=== PATIENT | female | born 1995 | race Caucasian/White ===

== ENCOUNTER 2024-05-05 09:45 | Outpatient (AMB) | payer OTHER, SELFPAY ==
[2024-05-05 09:51] VITALS: BP 116/68; PULSE 71; O2SAT 98; BMI 29.9
--- NOTE | 2024-05-05 09:51 | A.OFFVIS_ITS ---
Vital Signs 05/05/24 09:51 Height 5 ft 1 in Weight 158 lb 8.198 oz BMI 29.9 BP 116/68 Blood Pressure Location Lt brachial Position Sitting Pulse 71 Pulse Source Pulse Oximeter Pulse Oximetry (%) 98 Oxygen Delivery Method Room Air Intake Visit Reasons: Lupus/LM Intake Note: Patient presents for follow up on lupus today. She states she's almost out of hyroxychloquine. Allergies rituximab [From Rituxan] Allergy (Mild, Verified 05/05/24 09:53) hives, nausea, tachycardia HPI HPI Lupus/LM: Details: She recovered from RSV infection. Presenting with fatigue and URI symptoms. No sick contacts. Denies having fevers, new rashes, Raynaud's phenomena, oral ulcers, pleurisy, dyspnea, urinary symptoms. She continues to have malar rash. Last Benlysta 04/01/2024 [facility] Medical History (Updated 05/05/24 @ 10:41 by Joshua Sorenson MD) Anxiety Raynauds disease Antiphospholipid antibody positive Lupus (systemic lupus erythematosus) Surgical History (Updated 05/05/24 @ 10:00 by Ariane Linares CMA) S/P tonsillectomy Family History (Updated 05/05/24 @ 10:02 by Ariane Linares CMA) Mother Breast cancer Maternal Grandmother No problems noted. Maternal Aunt Breast cancer Father Hypertension Social History (Updated 05/05/24 @ 10:03 by Ariane Linares CMA) Alcohol intake: current Alcohol intake frequency: holidays/special occasions only Alcohol type: hard liquor Comment: once a week Patient Tobacco Use Status: Never used Tobacco Review of Systems Const All systems reviewed & are unremarkable except as noted in HPI and below Physical Exam Vital Signs: Last Vital Signs Pulse 71 05/05/24 09:51 BP 116/68 05/05/24 09:51 Pulse Ox 98 05/05/24 09:51 Oxygen Delivery Method Room Air 05/05/24 09:51 BMI result Body Mass Index 29.9 Const Other: General: Comfortable CVS: RRR Respiratory: clear to auscultation bilaterally. Good respiratory effort Skin: No lesions seen MSK: No synovitis. No tender joints. Good range of motion of upper extremities and lower extremities. Assessment & Plan Assessment & Plan (1) Lupus (systemic lupus erythematosus): Comment: In remission on hydroxychloroquine and Benlysta infusions. Code(s): M32.9 - Systemic lupus erythematosus, unspecified Category: Medical Plan: Labs for disease and drug monitoring on high-risk medication ordered Optimum weight based dose is 300 mg daily. I am requesting records from [facility] for med list verification. Will increase HCQ to 300mg after lab results are back. Continue Benlysta IV infusion monthly Return to clinic in 3 months (2) Other fdc (current) drug therapy: Code(s): Z79.899 - Other termite control technician (current) drug therapy Category: Medical Plan: See above Plan See above Orders: Orders C Reactive Protein Today M32.9 - Systemic lupus erythematosus, unspecified Erythrocyte Sedimentation Rate Today M32.9 - Systemic lupus erythematosus, unspecified, Z79.899 - Other fdc (current) drug therapy UA w Microscopic Today M32.9 - Systemic lupus erythematosus, unspecified, Z79.899 - Other termite control technician (current) drug therapy Protein Creatinine Ratio, Ur Today M32.9 - Systemic lupus erythematosus, unspecified Alanine Aminotransferase Today Z79.60 - longterm (current) use of unspecified immunomodulators and immunosuppressants T Spot TB Today Z79.899 - Other fdc (current) drug therapy Hepatitis B,C Profile Today M32.9 - Systemic lupus erythematosus, unspecified, Z79.899 - Other termite control technician (current) drug therapy Anti DNA DS Antibody Today M32.9 - Systemic lupus erythematosus, unspecified Complement C3 Today M32.9 - Systemic lupus erythematosus, unspecified Complement C4 Today M32.9 - Systemic lupus erythematosus, unspecified Aspartate Amino Transferase Today Z79.60 - longterm (current) use of unspecified immunomodulators and immunosuppressants Complete Blood Count Auto Diff Today Z79.60 - intermediate frame tender (current) use of uns pecified immunomodulators and immunosuppressants Creatinine Today Z79.60 - longterm (current) use of unspecified immunomodulators and immunosuppressants Coding Level of Care Code Est Pt Level 4 (24896) Complex EM visit Add On G2211 Diagnoses Lupus (systemic lupus erythematosus) M32.9 Other termite control technician (current) drug therapy Z79.899
== END 2024-05-05 10:32 | disposition home or self-care (01) ==
PROVIDERS: PCP Nurse Practitioner Family; Visit Provider Internal Medicine Rheumatology
DX: M32.9 Systemic lupus erythematosus, unspecified (principal); Z79.899 Other long term (current) drug therapy
CPT/HCPCS: 99214

== ENCOUNTER → 2024-05-05 09:45 | Outpatient (BNVA) | payer OTHER, SELFPAY | PROVIDERS: PCP Nurse Practitioner Family; Visit Provider Internal Medicine Rheumatology ==

== ENCOUNTER 2024-05-06 11:44 | Outpatient (REF) | payer OTHER, SELFPAY ==
[2024-05-06 13:14] LABS: MANUAL DIFF FLAG NO
[2024-05-06 13:24] LABS: Basophils Percent Auto 0.2 % (0-2); Eosinophils Percent Auto 0.2 % (0-4); Hematocrit 38.3 % (37.0-47.0); Hemoglobin 13.3 g/dl (12.0-16.0); Imm Gran Abs Auto 0.01 X10*3/uL (0.00-0.03); Imm Gran Pct Auto 0.2 % (0.0-0.4); Lymphocytes Absolute Auto 1.7 X10*3/uL (1.2-4.9); Lymphocytes Percent Auto 32.4 % (20-40); Mean Corpuscular HGB Conc 34.7 g/dl (31.0-35.0); Mean Corpuscular Hemoglobin 30.7 pg (27.0-33.0); Mean Corpuscular Volume 88.5 fL (80.0-98.0); Mean Platelet Volume 10.8 fL (9.4-12.3); Monocytes Absolute Auto 0.3 X10*3/uL (0.1-1.2); Monocytes Percent Auto 6.2 % (2-11); Neutrophils Absolute Auto 3.1 x10*3/uL (2.0-8.3); Neutrophils Percent Auto 60.8 % (45-73); Platelet Count 287 X10*3/uL (160-400); Red Blood Count 4.33 X10*6/uL (4.20-5.50); Red Cell Distribution Width 11.7 % (11.0-16.0); White Blood Count 5.2 X10*3/uL (4.8-10.8)
[2024-05-06 13:56] LABS: Alanine Aminotransferase 22 U/L (0-31); Aspartate Amino Transferase 18 U/L (5-31); C Reactive Protein < 0.10 mg/dL (< or = 0.50); Estimated Glomerular Filt Rate > 60
[2024-05-06 14:05] LABS: Erythrocyte Sedimentation Rate 18 MM/HR (0-20)
[2024-05-06 16:18] LABS: Appearance Urine Cloudy; Color Urine Yellow; Glucose Urine UA Negative (Negative); Leukocyte Esterase Urine Negative (Negative); Nitrite Urine Negative (Negative); PH 5.5 (5.0-9.0); Urine Blood Negative (Negative); Urine Ketones Negative (Negative); Urine Protein Negative (Neg-Trace)
[2024-05-06 16:23] LABS: Bacteria Urine 3+ (None Seen); Hyaline Casts Urine 0-2 /LPF (0-2); RBC Urine 0-2 /HPF (0-2); WBC Urine 0-5 /HPF (0-5)
[2024-05-06 17:01] LABS: Creatinine Urine 97.74 mg/dL; Total Protein Urine Random < 7 mg/dL (<12)
[2024-05-07 08:17] LABS: HBS Num1 1.97 mIU/mL (0-7.99); HBc Num1 0.21 S/CO (0.00-0.79); HBsAGNum1 0.63 S/CO (0.00-0.99); Hepatitis B Core Antibody Nonreactive (Nonreactive); Hepatitis B Surface Antigen Negative (Negative); ~HepC Num1 0.63 S/CO (0.00-0.79); ~Hepatitis B Surface Antibody NONREACTIVE (Nonreactive); ~Hepatitis C Antibody Nonreactive (Nonreactive)
[2024-05-07 16:08] LABS: Anti DNA DS Antibody 6 IU/mL
[2024-05-09 16:54] LABS: TS Negative Control Passed; TS Panel A 0; TS Panel B 0; TS Positive Control Passed; TSpotTB Negative (Negative)
[2024-05-11 11:08] LABS: Complement C3 107 mg/dL (83-193)
== END 2024-05-06 11:45 | disposition home or self-care (01) ==
LOC: HO.HMGCLDS 11:44
PROVIDERS: PCP Nurse Practitioner Family; Visit Provider Internal Medicine Rheumatology
DX: M32.9 Systemic lupus erythematosus, unspecified (principal); Z79.899 Other long term (current) drug therapy; Z79.60 Long term (current) use of unspecified immunomodulators and immunosuppressants
CPT/HCPCS: 36415; 81001; 82565; 82570; 84156; 84450; 84460; 85025; 85652; 86140; 86160; 86225; 86481; 86704; 86706; 86803; 87340

== ENCOUNTER 2024-08-04 09:37 | Outpatient (AMB) | payer OTHER, SELFPAY ==
--- NOTE | 2024-08-04 09:39 | A.OFFVIS_ITS ---
Vital Signs 08/04/24 09:41 Height 5 ft 1 in Weight 160 lb 0.889 oz BMI 30.2 BP 110/80 Pulse 80 Pulse Source Pulse Oximeter Pulse Oximetry (%) 99 Oxygen Delivery Method Room Air Intake Visit Reasons: 3 mnts f/u Intake Note: Patient presents for follow up on lupus today. Allergies rituximab [From Rituxan] Allergy (Mild, Verified 08/04/24 09:41) hives, nausea, tachycardia HPI HPI 3 mnts f/u: Details: She has increased anxiety because her dog is not doing well. Dog recently was found to have a tumor in his mouth. She denies new fevers, dyspnea, pleurisy, oral ulcers, rash, joint pain, joint swelling, Raynaud's syndrome flares, urinary symptoms. [facility] Medical History Anxiety Raynauds disease Antiphospholipid antibody positive Lupus (systemic lupus erythematosus) Surgical History S/P tonsillectomy Family History Mother Breast cancer Maternal Grandmother No problems noted. Maternal Aunt Breast cancer Father Hypertension Social History Alcohol intake: current Alcohol intake frequency: holidays/special occasions only Alcohol type: hard liquor Comment: once a week Patient Tobacco Use Status: Never used Tobacco Review of Systems Const All systems reviewed & are unremarkable except as noted in HPI and below Physical Exam Vital Signs: Last Vital Signs Pulse 80 08/04/24 09:41 BP 110/80 08/04/24 09:41 Pulse Ox 99 08/04/24 09:41 Oxygen Delivery Method Room Air 08/04/24 09:41 BMI result Body Mass Index 30.2 Const Other: General: Comfortable CVS: RRR Respiratory: clear to auscultation bilaterally. Good respiratory effort Skin: No lesions seen, digital ulcers or discoloration MSK: No synovitis. No tender joints. Normal range of motion of upper extremities and lower extremities. Assessment & Plan Assessment & Plan (1) Lupus (systemic lupus erythematosus): Comment: In clinical remission on hydroxychloroquine and Benlysta infusions. Recent labs reviewed with patient, which reveal indeterminate double-stranded DNA and low C4 - stable. Rheumatology history: She was diagnosed with systemic lupus erythematosus manifesting with autoimmune hemolytic anemia, malar rash, hair loss, migraines, Raynaud's syndrome, inflammatory arthritis, hypocomplementemia, low C3, undetectable level of C4 initially, positive double-stranded DNA. She was treated with prednisone 60 mg daily March 2018 tapered off 07/[address] Garsia [facility] [place]. HCQ Baseline exam 07/2018. Rituximab 375mg/m2 4 doses 11/2019-06/2020 d/c infusion reaction after 3rd and 4th weekly dose. Azathioprine started due to serological activity of lupus but discontinued due to worsening leukopenia and new transaminitis. Code(s): M32.9 - Systemic lupus erythematosus, unspecified Category: Medical Qualifiers: Systemic lupus erythematosus organ involvement: unspecified Systemic lupus erythematosus type: unspecified Qualified Code(s): M32.9 - Systemic lupus erythematosus, unspecified Plan: Labs for disease and drug monitoring on high-risk medication ordered Continue HCQ 300mg daily. Recent eye exam reviewed but it does not mentioned if it is okay for patient to continue hydroxychloroquine and recent OCT and visual field test has not been reported. Requesting clarification/letter from provide. Need OCT and VF yearly. Continue Benlysta IV infusion every 4 weeks Return to clinic in 3 months (2) Other care home (current) drug therapy: Code(s): Z79.899 - Other termite control representative (current) drug therapy Category: Medical Plan See above Orders: Orders Complete Blood Count Auto Diff Today Z79.60 - termite control representative (current) use of unspecified immunomodulators and immunosuppressants Alanine Aminotransferase Today Z79.60 - jail (current) use of unspecified immunomodulators and immunosuppressants Aspartate Amino Transferase Today Z79.60 - termite control representative (current) use of unspecified immunomodulators and immunosuppressants Erythrocyte Sedimentation Rate Today Z79.899 - Other termite control representative (current) drug therapy C Reactive Protein Today Z79.899 - Other termite control representative (current) drug therapy Anti DNA DS Antibody Today M32.9 - Systemic lupus erythematosus, unspecified Complement C4 Today M32.9 - Systemic lupus erythematosus, unspecified JOSEPH Reflex Titer and Pattern Today M32.9 - Systemic lupus erythematosus, unspecified Creatinine Today Z79.60 - jail (current) use of unspecified immunomodulators and immunosuppressants Complement C3 Today M32.9 - Systemic lupus erythematosus, unspecified, Z79.899 - Other termite control representative (current) drug therapy UA w Microscopic Today Z79.899 - Other termite control representative (current) drug therapy Protein Creatinine Ratio, Ur Today M32.9 - Systemic lupus erythematosus, unspecified, Z79.899 - Other termite control representative (current) drug therapy Coding Level of Care Code Est Pt Level 4 (89123) Complex EM visit Add On G2211 Diagnoses Systemic lupus erythematosus, unspecified SLE type, unspecified organ involvement status M32.9 Systemic lupus erythematosus organ involvement: unspecified Systemic lupus erythematosus type: unspecified Other care home (current) drug therapy Z79.899
[2024-08-04 09:41] VITALS: BP 110/80; PULSE 80; O2SAT 99; BMI 30.2
--- OUTSIDE RECORDS SUMMARY | 2024-08-04 10:52 | XMS_ITS | Encounter Summary ---
Author Organization [facility] Address [address] [place] [address] Phone Care Team Providers Care Senior Center Director Name Role Phone Darcie Story MD Primary Care Provider Unavailabl e Encounter Details Date Type Department Care Team (Late st Contact Info) Description 03/02/2013 [place] [facility] [place] [address] [place] [address] Family Medicine, Physician [address] [place] [address] Social History Tobacco Use Types Packs/Day Years Used Date Smoking Tobacco: Never Assessed Comments Unknown Sex and Gender Information Value Date Recorded Sex Assigned at Not on file Legal Sex Female 5:04 PM EDT Gender Identity Not on file Sexual Orientation Not on file documented as of this encounter Plan of Treatment Not on file documented as of this encounter Visit Diagnoses Not on filedocumented in this encounter Care Teams Senior Center Director Relationship Specialty Start Date End Date Darcie Story MD PCP - General 01/04/17 documented as of this encounter
--- OUTSIDE RECORDS SUMMARY | 2024-08-04 10:52 | XMS_ITS | Encounter Summary ---
Author Organization [facility] Address [address] [place] [address] Phone Care Team Providers Care Utility Systems Repairer Operator Name Role Phone Darcie Story MD Primary Care Provider Unavailabl e Encounter Details Date Type Department Care Team (Late st Contact Info) Description 08/14/2013 Documentation [facility] [place] [address] [place] [address] Family Medicine, Physician [address] [place] [address] Social History Tobacco Use Types Packs/Day Years [...] on filedocumented in this encounter Care Teams Utility Systems Repairer Operator Relationship Specialty Start Date End Date Darcie Story MD PCP - General 01/04/17 documented as of this encounter
--- OUTSIDE RECORDS SUMMARY | 2024-08-04 10:52 | XMS_ITS | Clinical Summary ---
Author Organization [facility] Address [address] [place] [phone] Phone Care Team Providers Care Cable Engineer Outside Plant Name Role Phone Darcie Story MD Primary Care Provider Unavailabl e Immunizations Immunization Administration Dates Next Due DTP 01/07/1998, 7,1996,09/10 DTaP 5 08/05/2000 HPV, Quadrivalent 05/03/2011,04/19/2010,02/09/20 10 Hep A, ped/adol 01/03/2015,05/31/2014 Hep B, ped/adol 01/11/1997,1996,1996 Hib (PRP-T) 10/15/1997, 7,1996,09/10 IPV 08/05/2000 Influenza Split 05/03/2011 Influenza, injectable, quadrivalent 05/31/2014 Influenza, injectable, quadr ivalent, preservative free 08/10/2013 Influenza, intranasal, trivalent 08/07/2012,01/25 MMR 08/05/2000,07/16/1997 Meningococcal Conj (Menactra) MCV4P 05/31/2014,0 01/05/2009 OPV 01/11/1997,1996,1996 Tdap 01/05/2009 Varicella 01/05/2009,07/16/1997 Family History Relation Name Status Comments Brother Alive Brother: Alive and well Father Alive Father: Alive a nd well Maternal Grandmother Alive Materna l aunt: Cancer, breast Mother Alive Mother: elevate d JOSEPH Other 1 Self: Factor 2 Other 2 Family history of *Sudden /NM under 55, No family history of Asthma, No family history of Obesity, Family history of Hyperlipidemia, No family history of Developmental dislocation of hip, No family history of Diabetes mellitus, No family history of Deafness, No family history of Strabismus, Family history of ADD/ADHD, Family history of *Thrombophilia, No family history of Migraines, Family history of Elevated cholesterol, No family history of *Heart Disease, No family history of Seizure disorder, Family history of Cancer, No family history of *CVA/Stroke Social History Tobacco Use Types Packs/Day Years Used Date Smoking Tobacco: Never Comments:Never smoker Comments Unknown Sex and Gender Information Value Date Recorded Sex Assigned at Not on file Legal Sex Female 5:04 PM EDT Gender Identity Not on file Sexual Orientation Not on file Last Filed Vital Signs Vital Sign Reading Time Taken Comments Blood Pressure 108/76 10/27/2015 12:00 AM EDT Pulse 72 07/26/2015 12:00 AM EST Temperature 36.7 ??C (98 ??F) 10/27/2015 12:00 AM EDT Respiratory Rate - - Oxygen Saturation - - Inhaled Oxygen Concentration - - Weight 54.4 kg (120 lb) 10/27/2015 12:00 AM EDT Height 154.3 cm (5' 0.75 ) 10/27/2015 12:00 AM E DT Body Mass Index 22.86 10/27/2015 12:00 AM EDT Plan of Treatment Health Maintenance Due Date Last Done Comments DTaP,Tdap,and Td Vaccines (7 - Td or Tdap) 01/05/2019 01/05/2009, 08/05/2000, 01/07/1998, Additional history exists Influenza Vaccines (#1) 2023 05/31/19, 08/10/2013, 08/07/2012, Additional history exists COVID-19 Vaccine ( season) 2024 Hepatitis B Vaccines Completed 01/11/1997, 1996, 1996 HIB Vaccines Completed 10/15/1997, 12/25, 1996, Additional history exists IPV Vaccines Completed 08/05/2000, 12/25, 1996, Additional history exists MMR Vaccines Completed 08/05/2000, 07/16/1997 Varicella Vaccines Completed 01/05/2009, 07/16/1997 HPV Vaccines Completed 05/03/2011, 03/28, 02/08/2010 Meningococcal Vaccine Completed 05/31/2014, 009 Hepatitis A Vaccines Completed 01/03/2015, 05/31/19 15 Men B Vaccine Aged Out No longer elig ible based on patient's age to complete this topic Pneumococcal Vaccine Aged Out No long er eligible based on patient's age to complete this topic Procedures * Due to [facility] law, this organization might not be sharing sensitive test results. Procedure Name Priority Date/Time Associated Diagnosis Comments CHLAMYDIA AND GONORRHEA, AMPLIFIED Routine 08/11/2014 2:58 PM EDT from Last 3 Months or Most Recently Relevant to Health Maintenance Results * Due to [place] [employer] law, this organization might not be sharing sensitive test results. * Chlamydia and Gonorrhoea, Amplified (08/11/2014 2:58 PM EDT) Pathologist [facility] URINE CHLAMYDIA AMP PROBE NEGATIVE [facility] Comment: No Chlamydia Trachomatis RNA detected in this patient's sample (REFERENCE RANGE/NORMAL VALUE: NOT DETECTED) URINE GC AMP PROBE NEGATIVE [facility] Comment: No Neisseria Gonorrhoeae RNA detected in this patient's sample (REFERENCE RANGE/NORMAL VALUE: NOT DETECTED) NOTE: This test uses identification printing machine setter-mediated amplification method to detect rRNA from C.Trachomatis and N.Gonorrhoeae. A negative result does not preclude infection. In the case of a negative urine result, testing of an endocervical(female) or urethral(male) specimen is recommended if there is high clinical suspicion of infection. The performance characteristics of this test have not been evaluated in children. The Aptima Combo2 assay is not intended for the evaluation of suspected sexual abuse or for other medico-legal indications. The ordering provider should assess if the patient had consensual sex without risk of sexual abuse. Consult the [facility] if needed. Contact phone number . Therapeutic failure or success cannot be determined with the Aptima Combo2 assay since nucleic acid may persist following appropriate antimicrobial therapy. The Centers for Disease Control and Prevention (CDC) recommends confirmatory retesting using culture or a different nucleic acid amplification test when positive results occur, if indicated. Testing performed or reported by [facility], a Service of [facility], [address] [place], [place] [id number] Tremaine Bowling MD, PhD, Lead Instructor/Flight Attendant 08/11/2014 2:58 PM EDT Narrative [facility] - 08/11/2014 2:58 PM EDT URINE CHLAMYDIA GC AMP PROBE us Bharti Alvarado MD LAB MICROBIOLOGY - GENERAL ORDER DAE Final Result [facility] [address] [id number], [place] from Last 3 Months or Most Recently Relevant to Health Maintenance Care Teams Cable Engineer Outside Plant Relationship Specialty Start Date End Date Darcie Story MD PCP - General 01/04/17
--- OUTSIDE RECORDS SUMMARY | 2024-08-04 10:52 | XMS_ITS | Encounter Summary ---
Author Organization [facility] Address [address] [place] [phone] Phone Care Team Providers Care Janitor Name Role Phone Darcie Story MD Primary Care Provider Unavailabl e Encounter Details Date Type Department Care Team (Late st Contact Info) Description 01/10/2017 Conversion Encounter [facility] - [address] [address] Social History Tobacco Use Types Packs/Day Years [...] on filedocumented in this encounter Care Teams Janitor Relationship Specialty Start Date End Date Darcie Story MD PCP - General 01/04/17 documented as of this encounter
--- OUTSIDE RECORDS SUMMARY | 2024-08-04 10:52 | XMS_ITS | Encounter Summary ---
Author Organization [facility] Address [address] [place] [phone] Phone Care Team Providers Care Child Psychiatrist Name Role Phone Darcie Story MD Primary Care Provider Unavailabl e Encounter Details Date Type Department Care Team (Late st Contact Info) Description 03/02/2013 Documentation [facility] [place] Family Medicine [address] [place] [address] Family Medicine, Physician [address] [place] [address] Social History Tobacco Use Types Packs/Day Years [...] on filedocumented in this encounter Care Teams Child Psychiatrist Relationship Specialty Start Date End Date Darcie Story MD PCP - General 01/04/17 documented as of this encounter
--- OUTSIDE RECORDS SUMMARY | 2024-08-04 10:52 | XMS_ITS | Encounter Summary ---
Author Organization [facility] Address [address] [place] [phone] Phone Care Team Providers Care Occupational Therapy Department Chair Name Role Phone Darcie Story MD Primary Care Provider Unavailabl e Encounter Details Date Type Department Care Team (Late st Contact Info) Description 10/21/2013 Documentation [facility] [place] [address] [place] [address] Family Medicine, Physician [address] [place] [address] Social History Tobacco Use Types Packs/Day Years [...] on filedocumented in this encounter Care Teams Occupational Therapy Department Chair Relationship Specialty Start Date End Date Darcie Story MD PCP - General 01/04/17 documented as of this encounter
--- OUTSIDE RECORDS SUMMARY | 2024-08-04 10:52 | XMS_ITS | Encounter Summary ---
Author Organization [facility] Address [address] [place] [address] Phone Care Team Providers Care Brick And Blocker Aid Labor Name Role Phone Darcie Story MD Primary Care Provider Unavailabl e Encounter Details Date Type Department Care Team (Late st Contact Info) Description 12/22/2014 Documentation [facility] [place] Medicine [address] [place] [address] Family Medicine, Physician [address] [place] [address] Social History Tobacco Use Types Packs/Day Years [...] on filedocumented in this encounter Care Teams Brick And Blocker Aid Labor Relationship Specialty Start Date End Date Darcie Story MD PCP - General 01/04/17 documented as of this encounter
== END 2024-08-04 10:18 | disposition home or self-care (01) ==
LOC: HO.RHES 09:37
PROVIDERS: PCP Nurse Practitioner Family; Visit Provider Internal Medicine Rheumatology
DX: M32.9 Systemic lupus erythematosus, unspecified (principal); Z79.899 Other long term (current) drug therapy
CPT/HCPCS: 99214

== ENCOUNTER 2024-08-21 08:22 | Outpatient (REF) | payer OTHER, SELFPAY ==
[2024-08-21 10:20] LABS: MANUAL DIFF FLAG NO
[2024-08-21 10:24] LABS: Appearance Urine Cloudy; Color Urine Yellow; Glucose Urine UA Negative (Negative); Leukocyte Esterase Urine Negative (Negative); Nitrite Urine Negative (Negative); Urine Blood Negative (Negative); Urine Ketones Negative (Negative); Urine Protein Negative (Neg-Trace)
[2024-08-21 10:25] LABS: Basophils Percent Auto 0.2 % (0-2); Eosinophils Percent Auto 0.2 % (0-4); Hematocrit 36.4 % (37.0-47.0); Hemoglobin 12.9 g/dl (12.0-16.0); Imm Gran Abs Auto 0.01 X10*3/uL (0.00-0.03); Imm Gran Pct Auto 0.2 % (0.0-0.4); Lymphocytes Absolute Auto 1.6 X10*3/uL (1.2-4.9); Lymphocytes Percent Auto 29.4 % (20-40); Mean Corpuscular HGB Conc 35.4 g/dl (31.0-35.0); Mean Corpuscular Hemoglobin 30.4 pg (27.0-33.0); Mean Corpuscular Volume 85.8 fL (80.0-98.0); Mean Platelet Volume 10.7 fL (9.4-12.3); Monocytes Absolute Auto 0.3 X10*3/uL (0.1-1.2); Neutrophils Absolute Auto 3.4 x10*3/uL (2.0-8.3); Platelet Count 229 X10*3/uL (160-400); Red Blood Count 4.24 X10*6/uL (4.20-5.50); Red Cell Distribution Width 11.9 % (11.0-16.0); White Blood Count 5.3 X10*3/uL (4.8-10.8)
[2024-08-21 10:31] LABS: Bacteria Urine 2+ (None Seen); Hyaline Casts Urine 0-2 /LPF (0-2); RBC Urine 0-2 /HPF (0-2); WBC Urine 0-5 /HPF (0-5)
[2024-08-21 11:07] LABS: Creatinine Urine 97.67 mg/dL; Total Protein Urine Random < 7 mg/dL (<12)
[2024-08-21 11:16] LABS: Erythrocyte Sedimentation Rate 12 MM/HR (0-20)
[2024-08-21 11:27] LABS: Alanine Aminotransferase 22 U/L (0-31); Aspartate Amino Transferase 17 U/L (5-31); C Reactive Protein < 0.10 mg/dL (< or = 0.50); Estimated Glomerular Filt Rate > 60
[2024-08-24 12:27] LABS: Complement C3 102 mg/dL (83-193)
[2024-08-24 19:49] LABS: Anti DNA DS Antibody 5 IU/mL
[2024-08-25 09:42] LABS: Anti Nuclear Antibody Screen NEGATIVE (NEGATIVE)
== END 2024-08-21 08:23 | disposition home or self-care (01) ==
LOC: HO.HMGCLDS 08:22
PROVIDERS: PCP Nurse Practitioner Family; Visit Provider Internal Medicine Rheumatology
DX: M32.9 Systemic lupus erythematosus, unspecified (principal); Z79.60 Long term (current) use of unspecified immunomodulators and immunosuppressants; Z79.899 Other long term (current) drug therapy
CPT/HCPCS: 36415; 81001; 82565; 82570; 84156; 84450; 84460; 85025; 85652; 86038; 86140; 86160; 86225

== ENCOUNTER 2024-11-04 08:44 | Outpatient (AMB) | payer OTHER, SELFPAY ==
--- NOTE | 2024-11-04 08:45 | A.OFFVIS_ITS ---
Vital Signs 11/04/24 08:47 Height 5 ft 1 in Weight 160 lb 4 oz BMI 30.3 BP 112/68 Blood Pressure Location Lt brachial Position Sitting Pulse 70 Pulse Source Pulse Oximeter Pulse Oximetry (%) 98 Oxygen Delivery Method Room Air Intake Visit Reasons: 3 Months Intake Note: Patient presents for follow up osteoarthritis. Allergies rituximab [From Rituxan] Allergy (Mild, Verified 11/04/24 08:49) hives, nausea, tachycardia HPI HPI 3 Months: Details: She feels well. Denies joint pain, fevers, dyspnea, pleurisy, new rashes, Raynaud's phenomenon, urinary symptoms. She saw wellfield technician who informed her that there was lab abnormality on her labs involving her blood counts. She did not receive any new treatments. [facility] Medical History Anxiety Raynauds disease Antiphospholipid antibody positive Lupus (systemic lupus erythematosus) Surgical History S/P tonsillectomy Family History Mother Breast cancer Maternal Grandmother No problems noted. Maternal Aunt Breast cancer Father Hypertension Social History Alcohol intake: current Alcohol intake frequency: holidays/special occasions only Alcohol type: hard liquor Comment: once a week Patient Tobacco Use Status: Never used Tobacco Physical Exam Vital Signs: Last Vital Signs Pulse 70 11/04/24 08:47 BP 112/68 11/04/24 08:47 Pulse Ox 98 11/04/24 08:47 Oxygen Delivery Method Room Air 11/04/24 08:47 BMI result Body Mass Index 30.3 Const Other: General: Comfortable CVS: RRR Respiratory: clear to auscultation bilaterally. Good respiratory effort Skin: No lesions seen, digital ulcers or discoloration MSK: No synovitis. No tender joints. Normal range of motion of upper extremities and lower extremities. Assessment & Plan Assessment & Plan (1) Lupus (systemic lupus erythematosus): Comment: In clinical remission on hydroxychloroquine and Benlysta infusions. Recent labs 07/2024 reviewed with patient, which reveal indeterminate double-stranded DNA and low C4 - stable. She also had normal hemoglobin with low hematocrit. Rheumatology history: She was diagnosed with systemic lupus erythematosus manifesting with autoimmune hemolytic anemia, malar rash, hair loss, migraines, Raynaud's syndrome, inflammatory arthritis, hypocomplementemia, low C3, undetectable level of C4 initially, positive double-stranded DNA. She was treated with prednisone 60 mg daily March 2018 tapered off 07/[address] Garsia [facility] [place]. HCQ Baseline exam 07/2018. Rituximab 375mg/m2 4 doses 11/2019-06/2020 d/c infusion reaction after 3rd and 4th weekly dose. Azathioprine started due to serological activity of lupus but discontinued due to worsening leukopenia and new transaminitis. Code(s): M32.9 - Systemic lupus erythematosus, unspecified Category: Medical Qualifiers: Systemic lupus erythematosus organ involvement: unspecified Systemic lupus erythematosus type: unspecified Qualified Code(s): M32.9 - Systemic lupus erythematosus, unspecified Plan: Labs for disease and drug monitoring on high-risk medication ordered Continue HCQ 300mg daily. VF 12/2023. Continue Benlysta IV infusion every 4 weeks Requesting recent hematology clinic note and labs performed at [facility] ordered by wellfield technician Return to clinic in 3 months (2) Other prison (current) drug therapy: Code(s): Z79.899 - Other prison (current) drug therapy Category: Medical Plan See above Orders: Orders Complete Blood Count Man Dif Today M32.9 - Systemic lupus erythematosus, unspecified Alanine Aminotransferase Today M32.9 - Systemic lupus erythematosus, unspec ified C Reactive Protein Today M32.9 - Systemic lupus erythematosus, unspecified UA w Microscopic Today M32.9 - Systemic lupus erythematosus, unspecified Protein Creatinine Ratio, Ur Today M32.9 - Systemic lupus erythematosus, unspecified Complement C3 Today M32.9 - Systemic lupus erythematosus, unspecified Anti DNA DS Antibody Today M32.9 - Systemic lupus erythematosus, unspecified Aspartate Amino Transferase Today M32.9 - Systemic lupus erythematosus, unspecified Creatinine Today M32.9 - Systemic lupus erythematosus, unspecified Erythrocyte Sedimentation Rate Today M32.9 - Systemic lupus erythematosus, unspecified Complement C4 Today M32.9 - Systemic lupus erythematosus, unspecified Coding Level of Care Code Est Pt Level 4 (94302) Complex EM visit Add On G2211 Diagnoses Systemic lupus erythematosus, unspecified SLE type, unspecified organ involvement status M32.9 Systemic lupus erythematosus organ involvement: unspecified Systemic lupus erythematosus type: unspecified Other watermelon harvesting supervisor (current) drug therapy Z79.899
[2024-11-04 08:47] VITALS: BP 112/68; PULSE 70; O2SAT 98; BMI 30.3
--- OUTSIDE RECORDS SUMMARY | 2024-11-04 09:03 | XMS_ITS | Encounter Summary ---
Author Organization [facility] Address [address] [place] [phone] Phone Care Team Providers Care School Psychological Examiner Name Role Phone Darcie Story MD Primary Care Provider Unavailabl e Encounter Details Date Type Department Care Team (Late st Contact Info) Description 03/02/2013 Documentation [facility] [place] Family Medicine [address] [place] [address] Family Medicine, Physician [address] [place] [address] Social History Tobacco Use Types Packs/Day Years [...] on filedocumented in this encounter Care Teams School Psychological Examiner Relationship Specialty Start Date End Date Darcie Story MD PCP - General 01/04/17 documented as of this encounter
== END 2024-11-04 09:23 | disposition home or self-care (01) ==
LOC: HO.RHES 08:45
PROVIDERS: PCP Nurse Practitioner Family; Visit Provider Internal Medicine Rheumatology
DX: M32.9 Systemic lupus erythematosus, unspecified (principal); Z79.899 Other long term (current) drug therapy
CPT/HCPCS: 99214; G2211

== ENCOUNTER 2024-11-04 08:44 | Outpatient (REF) | payer OTHER, SELFPAY ==
[2024-11-04 18:29] LABS: Baso%MD 0.2 %; Eos%MD 0.2 %; Hematocrit 38.6 % (37.0-47.0); Hemoglobin 13.7 g/dl (12.0-16.0); IG%MD 0.2 %; Lymph%MD 32.5 %; Mean Corpuscular HGB Conc 35.5 g/dl (31.0-35.0); Mean Corpuscular Hemoglobin 30.9 pg (27.0-33.0); Mean Corpuscular Volume 86.9 fL (80.0-98.0); Mono%MD 7.5 %; Neut%MD 59.4 %; Platelet Count 244 X10*3/uL (160-400); Red Blood Count 4.44 X10*6/uL (4.20-5.50); Red Cell Distribution Width 11.8 % (11.0-16.0); White Blood Count 4.4 X10*3/uL (4.8-10.8)
[2024-11-04 18:30] LABS: Creatinine Urine 118.03 mg/dL; Total Protein Urine Random < 7 mg/dL (<12)
[2024-11-04 18:34] LABS: Appearance Urine Clear; Color Urine Yellow; Glucose Urine UA Negative (Negative); Leukocyte Esterase Urine Negative (Negative); Nitrite Urine Negative (Negative); Urine Blood Negative (Negative); Urine Ketones Negative (Negative); Urine Protein Negative (Neg-Trace)
[2024-11-04 18:37] LABS: Alanine Aminotransferase 20 U/L (0-31); Aspartate Amino Transferase 19 U/L (5-31); Estimated Glomerular Filt Rate > 60
[2024-11-04 18:39] LABS: Bacteria Urine 1+ (None Seen); Hyaline Casts Urine 0-2 /LPF (0-2); RBC Urine 0-2 /HPF (0-2); WBC Urine 0-5 /HPF (0-5)
[2024-11-04 19:19] LABS: Erythrocyte Sedimentation Rate 10 MM/HR (0-20)
[2024-11-04 20:39] LABS: Eosinophils Percent Manual 1 % (0-4); Lymphocytes Percent Manual 23 % (20-40); Monocytes Absolute Manual 0.4 X10*3/uL (0.1-1.2); Monocytes Percent Manual 8 % (2-11); Neutrophils Percent Manual 68 % (45-73)
[2024-11-04 20:40] LABS: Platelet Estimate NORMAL (NORMAL); Platelet Morphology Comment NORMAL; RBC Morphology NORMAL
[2024-11-04 20:41] LABS: Band Neutrophils Percent 0 % (3-5)
[2024-11-07 06:33] LABS: Anti DNA DS Antibody 5 IU/mL
== END 2024-11-04 08:45 | disposition home or self-care (01) ==
LOC: HO.HKASLDS 08:44
PROVIDERS: PCP Nurse Practitioner Family; Visit Provider Internal Medicine Rheumatology
DX: M32.9 Systemic lupus erythematosus, unspecified (principal)
CPT/HCPCS: 36415; 81001; 82565; 82570; 84156; 84450; 84460; 85007; 85027; 85652; 86140; 86160; 86225

== ENCOUNTER 2025-02-09 08:28 | Outpatient (AMB) | payer OTHER, SELFPAY ==
--- NOTE | 2025-02-09 08:29 | A.OFFVIS_ITS ---
Vital Signs 02/09/25 08:30 Height 5 ft 1 in Weight 164 lb 7.437 oz BMI 31.1 BP 130/90 H Blood Pressure Location Lt brachial Position Sitting Pulse 78 Pulse Source Pulse Oximeter Pulse Oximetry (%) 97 Oxygen Delivery Method Room Air Intake Visit Reasons: 3 months Intake Note: Patient presents for follow up osteoarthritis. Accompanied by: Self / Same As Patient Allergies rituximab (From Rituxan) Allergy (Mild, Verified 02/09/25 08:29) hives, nausea, tachycardia HPI HPI 3 months: Details: Has a URI with headache, congestion and cough. Onset last . Improving. Injuly she was sick with a URI with brothers being exposures. Last Nov she was sick with RSV for 2 months +malar rash. No other signs or symptoms of SLE. [facility] Medical History Anxiety Raynauds disease Antiphospholipid antibody positive Lupus (systemic lupus erythematosus) Surgical History S/P tonsillectomy Family History Mother Breast cancer Maternal Grandmother No problems noted. Maternal Aunt Breast cancer Father Hypertension Social History Alcohol intake: current Alcohol intake frequency: holidays/special occasions only Alcohol type: hard liquor Comment: once a week Patient Tobacco Use Status: Never used Tobacco Physical Exam Vital Signs: Last Vital Signs Pulse 78 02/09/25 08:30 BP 130/90 H 02/09/25 08:30 Pulse Ox 97 02/09/25 08:30 Oxygen Delivery Method Room Air 02/09/25 08:30 BMI result Body Mass Index 31.1 Const Other: General: Comfortable CVS: RRR Respiratory: clear to auscultation bilaterally. Good respiratory effort Skin: No lesions seen, digital ulcers or discoloration MSK: No synovitis. No tender joints. Normal range of motion of upper extremities and lower extremities. Assessment & Plan Assessment & Plan (1) Lupus (systemic lupus erythematosus): Comment: In clinical remission on hydroxychloroquine and Benlysta infusions. Recent labs 10/2024 reviewed with patient, which reveal new leukopenia, indeterminate double- stranded DNA and low C4 - stable. She has a URI. If she continues to have recurrent URIs, I will consider reducing hydroxychloroquine dose to 200 mg daily. Rheumatology history: She was diagnosed with systemic lupus erythematosus manifesting with autoimmune hemolytic anemia, malar rash, hair loss, migraines, Raynaud's syndrome, inflammatory arthritis, hypocomplementemia, low C3, undetectable level of C4 initially, positive double-stranded DNA. She was treated with prednisone 60 mg daily March 2018 tapered off 07/[address] G[place] [facility] [place] HCQ Baseline exam 07/2018. Rituximab 375mg/m2 4 doses 11/2019-06/2020 d/c infusion reaction after 3rd and 4th weekly dose. Azathioprine started due to serological activity of lupus but discontinued due to worsening leukopenia and new transaminitis. Code(s): M32.9 - Systemic lupus erythematosus, unspecified Category: Medical Qualifiers: Systemic lupus erythematosus type: unspecified Systemic lupus erythematosus organ involvement: unspecified Qualified Code(s): M32.9 - Systemic lupus erythematosus, unspecified Plan: Labs for disease and drug monitoring on high-risk medication ordered. She will have labs done after she feels well. Continue HCQ 300mg daily. VF 12/2023. Eye exam scheduled for February. Continue Benlysta IV infusion every 4 weeks Return to clinic in 3 months (2) Other [facility]ci (current) drug therapy: Code(s): Z79.899 - Other petroleum terminal plant operator (current) drug therapy Category: Medical Plan See above Orders: Orders Protein Creatinine Ratio, Ur Today M32.9 - Systemic lupus erythematosus, unspecified Alanine Aminotransferase Today M32.9 - Systemic lupus erythematosus, unspecified Aspartate Amino Transferase Today M32.9 - Systemic lupus erythematosus, unspecified Creatinine Today M32.9 - Systemic lupus erythematosus, unspecified Anti DNA DS Antibody Today M32.9 - Systemic lupus erythematosus, unspecified C Reactive Protein Today M32.9 - Systemic lupus erythematosus, unspecified Complete Blood Count Auto Diff Today M32.9 - Systemic lupus erythematosus, unspecified Erythrocyte Sedimentation Rate Today M32.9 - Systemic lupus erythematosus, unspecified Complement C3 Today M32.9 - Systemic lupus erythematosus, unspecified Complement C4 Today M32.9 - Systemic lupus erythematosus, unspecified UA ClnCatch+Micro w/rflx Cult Today M32.9 - Systemic lupus erythematosus, unspecified Coding Level of Care Code Est Pt Level 4 (92571) Complex EM visit Add On G2211 Diagnoses Systemic lupus erythematosus, unspecified SLE type, unspecified organ involvement status M32.9 Systemic lupus erythematosus type: unspecified Systemic lupus erythematosus organ involvement: unspecified Other petroleum terminal plant operator (current) drug therapy Z79.899
[2025-02-09 08:30] VITALS: BP 130/90; PULSE 78; O2SAT 97; BMI 31.1
--- OUTSIDE RECORDS SUMMARY | 2025-02-09 10:02 | XMS_ITS | Encounter Summary ---
Author Organization [facility] Address [address] [place] [address] Phone Care Team Providers Care Med Spec Name Role Phone Darcie Story MD Primary Care Provider Unavailabl e Encounter Details Date Type Department Care Team (Late st Contact Info) Description 03/02/2013 Documentation [facility] [place] Family Medicine [address] [place] [address] Family Medicine, Physician [address] [place] [address] Social History Tobacco Use Types Packs/Day Years [...] on filedocumented in this encounter Care Teams Med Spec Relationship Specialty Start Date End Date Darcie Story MD PCP - General 01/04/17 documented as of this encounter
--- OUTSIDE RECORDS SUMMARY | 2025-02-09 10:02 | XMS_ITS | Encounter Summary ---
Author Organization [facility] Address [address] [place] [address] Phone Care Team Providers Care Coal Trimmer Name Role Phone Darcie Story MD Primary Care Provider Unavailabl e Encounter Details Date Type Department Care Team (Late st Contact Info) Description 01/10/2017 Conversion Encounter [facility] - [address] [address] Social History Tobacco Use Types Packs/Day Years [...] on filedocumented in this encounter Care Teams Coal Trimmer Relationship Specialty Start Date End Date Darcie Story MD PCP - General 01/04/17 documented as of this encounter
--- OUTSIDE RECORDS SUMMARY | 2025-02-09 10:02 | XMS_ITS | Encounter Summary ---
Author Organization [facility] Address [address] [place] [address] Phone Care Team Providers Care Sales Team Leader Name Role Phone Darcie Story MD Primary Care Provider Unavailabl e Encounter Details Date Type Department Care Team (Late st Contact Info) Description 03/02/2013 Documentation [facility] [place] Family Medicine [address] [place] [address] Family Medicine, Physician [address] [place] [address] Social History Tobacco Use Types Packs/Day Years [...] on filedocumented in this encounter Care Teams Sales Team Leader Relationship Specialty Start Date End Date Darcie Story MD PCP - General 01/04/17 documented as of this encounter
--- OUTSIDE RECORDS SUMMARY | 2025-02-09 10:02 | XMS_ITS | Encounter Summary ---
Author Organization [facility] Address [address] [place] [address] Phone Care Team Providers Care Interdisciplinary Professor Name Role Phone Darcie Story MD Primary Care Provider Unavailabl e Encounter Details Date Type Department Care Team (Late st Contact Info) Description 12/22/2014 Documentation [facility] [place] [address] [place] [address] Family Medicine, Physician [address] [place] [address] Social History Tobacco Use Types Packs/Day Years [...] on filedocumented in this encounter Care Teams Interdisciplinary Professor Relationship Specialty Start Date End Date Darcie Story MD PCP - General 01/04/17 documented as of this encounter
--- OUTSIDE RECORDS SUMMARY | 2025-02-09 10:03 | XMS_ITS | Encounter Summary ---
Author Organization [facility] Address [address] [place] [address] Phone Care Team Providers Care Escalator Attendant Name Role Phone Darcie Story MD Primary Care Provider Unavailabl e Encounter Details Date Type Department Care Team (Late st Contact Info) Description 10/21/2013 Documentation [facility] [place] Family Medicine [address] [place] [address] Family Medicine, Physician [address] [place] [address] Social History Tobacco Use Types Packs/Day Years [...] on filedocumented in this encounter Care Teams Escalator Attendant Relationship Specialty Start Date End Date Darcie Story MD PCP - General 01/04/17 documented as of this encounter
--- OUTSIDE RECORDS SUMMARY | 2025-02-09 10:03 | XMS_ITS | Clinical Summary ---
Author Organization [facility] Address [address] [place] [address] Phone Care Team Providers Care Logistics Operations Director Name Role Phone Darcie Story MD [...] 2 Other 2 Family history of *Sudden /DE under 55, No family history of Asthma, [...] 73 07/26/2015 12:00 AM EST Temperature 36.7 C (98 F) 10/27/2015 12:00 AM EDT Respiratory Rate - [...] 01/07/1998, Additional history exists Influenza Vaccines (#1) 2024 05/31/19, 08/10/2013, 08/07/2012, Additional history exists COVID-19 Vaccine ( season) 2025 Hepatitis B Vaccines Completed 01/11/1997, 1996, 1996 [...] complete this topic Procedures * Due to [facility] law, this organization might not be sharing sensitive test results. Procedure Name Priority Date/Time Associated Diagnosis Comments CHLAMYDIA AND GONORRHEA, AMPLIFIED Routine 08/11/2014 2:58 PM EDT from Last 3 Months or Most Recently Relevant to Health Maintenance Results * Due to [place] [employer] law, this organization might not be sharing sensitive test results. * Chlamydia and Gonorrhoea, Amplified (08/11/2014 2:58 PM EDT) Pathologist [facility] [place] URINE CHLAMYDIA AMP PROBE NEGATIVE [facility] Comment: No Chlamydia Trachomatis RNA detected in this patient's sample (REFERENCE RANGE/NORMAL VALUE: NOT DETECTED) URINE GC AMP PROBE NEGATIVE [facility] Comment: No Neisseria Gonorrhoeae RNA detected in this patient's sample (REFERENCE RANGE/NORMAL VALUE: NOT DETECTED) NOTE: This test uses bacteriologist medical-mediated amplification method to detect rRNA from C.Trachomatis [...] without risk of sexual abuse. Consult the [facility] if needed. Contact phone number . Therapeutic failure or success cannot be determined with the Aptima Combo2 assay since nucleic acid may persist following appropriate antimicrobial therapy. The Centers for Disease Control and Prevention (CDC) recommends confirmatory retesting using culture or a different nucleic acid amplification test when positive results occur, if indicated. Testing performed or reported by [facility], a Service of [facility], [address] [place] [address] Tremaine Bowling MD, PhD, Deaf And Hard Of Hearing Teacher 08/11/2014 2:58 PM EDT Narrative [facility] - 08/11/2014 2:58 PM EDT URINE CHLAMYDIA GC AMP PROBE us Bharti Alvarado MD LAB MICROBIOLOGY - GENERAL ORDER DAE Final Result [facility] [address] [place] [address], from Last 3 Months or Most Recently Relevant to Health Maintenance Care Teams Logistics Operations Director Relationship Specialty Start Date End Date Darcie Story MD PCP - General 01/04/17
--- OUTSIDE RECORDS SUMMARY | 2025-02-09 10:03 | XMS_ITS | Encounter Summary ---
Author Organization [facility] Address [address] [place] [address] Phone Care Team Providers Care Atomic Physics Professor Name Role Phone Darcie Story MD Primary Care Provider Unavailabl e Encounter Details Date Type Department Care Team (Late st Contact Info) Description 08/14/[address] [facility] [place] [address] [place] [address] Family Medicine, Physician [address] [place] [address] Social History Tobacco Use Types Packs/Day Years [...] on filedocumented in this encounter Care Teams Atomic Physics Professor Relationship Specialty Start Date End Date Darcie Story MD PCP - General 01/04/17 documented as of this encounter
--- OUTSIDE RECORDS SUMMARY | 2025-02-09 10:03 | XMS_ITS | Clinical Summary ---
Author Organization [facility] Address [address] [address] Phone Care Team Providers Care Professor Of Biblical Studies Name Role Phone Bull Yates MD Primary Care Provide r Medications DULoxetine (CYMBALTA) 20 MG capsule Take 1 capsule (20 mg total) by mouth daily. 60 capsule 3 07/22/2020 Active Social History Tobacco Use Types Packs/Day Years Used Date Smoking Tobacco: Never Smokeless Tobacco: Never Education Answer Date Recorded Are you interested in more education? Not on glenys e 09/21/2022 Are you concerned about learning? Not on file 09/21/2022 No 09/21/2022 No 09/21/2022 Digital Access Answer Date Recorded No 10/23/2022 No 10/23/2022 Reliable internet access at home? Not on file 10/23/2022 Device with a working camera? Not on file Comments Unknown Sex and Gender Information Value Date Recorded Sex Assigned at Female 06/27/2020 5:19 PM EST Legal Sex Female 5:07 PM EST Gender Identity Female 06/27/2020 5:19 PM EST Sexual Orientation Straight 06/27/2020 5: 19 PM EST Last Filed Vital Signs Vital Sign Reading Time Taken Comments Blood Pressure 118/62 07/22/2020 8:09 AM EST Pulse 98 07/22/2020 8:09 AM EST Temperature 36.2 C (97.1 F) 07/22/2020 8:09 AM EST Respiratory Rate - - Oxygen Saturation 100% 07/22/2020 8:09 AM EST Inhaled Oxygen Concentration - - Weight 68 kg (150 lb) 07/22/2020 8:09 AM EST Height 154.9 cm (5' 1 ) 07/22/2020 8:09 AM EST Body Mass Index 28.34 07/22/2020 8:09 AM EST Plan of Treatment Health Maintenance Due Date Last Done Comments DEPRESSION SCREENING 2008 HEPATITIS C SCREENING 2014 HIV ONE-TIME SCREENING (18-65 YEARS) 2014 PAP SMEAR 2017 Adult Td,Tdap Booster 01/05/2019 01/05/2009 SMOKING STATUS SCREENING (Once After 26 Yrs) 2022 INFLUENZA VACCINE (#1) 2024 , 02/24/2018, 05/31/2014, Additional history exists COVID-19 VACCINE ( season) 2025 02/17/2021 HIB VACCINES Completed 10/15/1997, 12/25, 1996, Additional history exists MENINGOCOCCAL VACCINES (ACWY) Completed 05/31/2014, 01/05/2009 HEPATITIS A VACCINES Completed 01/03/2015, 05/31/19 15 MENINGOCOCCAL VACCINES (B) Aged Out N o longer eligible based on patient's age to complete this topic PNEUMOCOCCAL VACCINES (0-49 years) Aged Out No longer eligible based on patient's age to complete this topic Medical Devices Not on file Insurance [employer] NETWORK HMO Care Teams Professor Of Biblical Studies Relationship Specialty Start Date End Date Bull Yates MD [address] [place] [address] PCP - General Internal Medicine 06/27/20 Additional Source Comments The information contained in this document represents components of the legal health record. It is not the complete legal health record.[facility]
--- OUTSIDE RECORDS SUMMARY | 2025-02-09 10:03 | XMS_ITS | Patient Health Record ---
Author Organization [facility] Address [address] [place] [address] Care Team Providers Care Orthotics Technician Name Role Phone Cross Darcie NAVARRETE Primary Care Provider bAebe Vieira Unavailable [phone] Reason For Referral No Information Medications Medication SIG (Take, Route, Fr equency, Duration) Notes Start Date End Date Status Physical Therapy Not -Taking Physical Therapy . . . 2-3x/week; Durat ion: 3-4 weeks Not-Taking Social History Tobacco use other than smoking: Question Answer Notes Are you an other tobacco user? No Problems Problem Type SNOMED Code ICD Code Onset Dates Problem Status W/U Status Risk Notes Problem Localized, primary osteoarthritis of the ankle and/or foot (283170794) Primary osteoarthrit is, right ankle and foot (M19.071) Active confirmed Plan Of Treatment Pending Test Test Name Order Date [id number] Destruction, 06-0902/20/2012 [id number] Destruction, 06-0903/20/2012 [id number]-Xqzq Destruction, 06-0904/21/2012 [id number]-Tlof Destruction, 06-0906/02/2012 X ray : Ankle, right 3V 08/14/2016 Insurance Providers Payer Name Payer Address Payer Phone Subscriber Number Group Number Insured Name Patient Relationship to Insured Coverage Start Date Coverage End Date [facility] [address] [place] [address] [phone] [id number] Child - Insured has Financial Responsibility Medical (General) History Medical History History ICD Code chicken pox Headaches Surgical History Surgery Date(Month/Year) tonsillectomy
== END 2025-02-09 08:53 | disposition home or self-care (01) ==
LOC: HO.RHES 08:28
PROVIDERS: PCP Nurse Practitioner Family; Visit Provider Internal Medicine Rheumatology
DX: M32.9 Systemic lupus erythematosus, unspecified (principal); Z79.899 Other long term (current) drug therapy
CPT/HCPCS: 99214; G2211

== ENCOUNTER 2025-02-26 11:25 | Outpatient (REF) | payer OTHER, SELFPAY ==
--- OUTSIDE RECORDS SUMMARY | 2025-02-26 12:34 | XMS_ITS | Encounter Summary ---
Author Organization [facility] Address [address] [place] [address] Phone Care Team Providers Care Dairy Nutrition Consultant Name Role Phone Darcie Story MD Primary Care Provider Unavailabl e Encounter Details Date Type Department Care Team (Late st Contact Info) Description 03/02/2013 Documentation [facility] [place] [address] [place] [address] Family Medicine, Physician [address] [place] [address] Social History Tobacco Use Types Packs/Day Years [...] on filedocumented in this encounter Care Teams Dairy Nutrition Consultant Relationship Specialty Start Date End Date Darcie Story MD PCP - General 01/04/17 documented as of this encounter
--- OUTSIDE RECORDS SUMMARY | 2025-02-26 12:34 | XMS_ITS | Encounter Summary ---
Author Organization [facility] Address [address] [place] [address] Phone Care Team Providers Care Look Out Tower Fire Watcher Name Role Phone Darcie Story MD Primary Care Provider Unavailabl e Encounter Details Date Type Department Care Team (Late st Contact Info) Description 12/22/2014 Documentation [facility] [place] Family Medicine [address] [place] [address] Family Medicine, Physician [address] [place] [address] Social History Tobacco Use Types Packs/Day Years [...] on filedocumented in this encounter Care Teams Look Out Tower Fire Watcher Relationship Specialty Start Date End Date Darcie Story MD PCP - General 01/04/17 documented as of this encounter
--- OUTSIDE RECORDS SUMMARY | 2025-02-26 12:34 | XMS_ITS | Patient Health Record ---
Author Organization [facility] Dave Jordan Address [address] [facility] [place] [address] Care Team Providers Care Cattle Dehorner Name Role Phone Cross Darcie NAVARRETE Primary Care Provider Abebe Vieira Unavailable [phone] Reason For Referral No Information Medications Medication [...] primary osteoarthritis of the ankle and/or foot (181482009) Primary osteoarthrit is, right ankle and foot (M19.071) Active confirmed Plan Of Treatment Pending Test Test Name Order Date [id number] Destruction, 06-0902/20/2012 [id number]-Iznn Destruction, 06-0903/20/2012 [id number]-Bkgq Destruction, 06-0904/21/2012 [id number]-Scpa Destruction, 06-0906/02/2012 X ray : Ankle, right 3V 08/14/2016 Insurance Providers Payer Name Payer Address Payer Phone Subscriber Number Group Number Insured Name Patient Relationship to Insured Coverage Start Date Coverage End Date [facility] [address] [place] [address] [phone] [id number] Marianna Donovan Child - Insured has Financial Responsibility Medical (General) History Medical History History ICD Code chicken pox Headaches Surgical History Surgery Date(Month/Year) tonsillectomy
--- OUTSIDE RECORDS SUMMARY | 2025-02-26 12:34 | XMS_ITS | Encounter Summary ---
Author Organization [facility] Address [address] [place] [address] Phone Care Team Providers Care Lathe Turner Name Role Phone Darcie Story MD Primary Care Provider Unavailabl e Encounter Details Date Type Department Care Team (Late st Contact Info) Description 08/14/2013 Documentation [facility] [place] [address] [place] [address] Family Medicine, Physician [address] [place] [address] Social History Tobacco Use Types Packs/Day Years [...] on filedocumented in this encounter Care Teams Lathe Turner Relationship Specialty Start Date End Date Darcie Story MD PCP - General 01/04/17 documented as of this encounter
--- OUTSIDE RECORDS SUMMARY | 2025-02-26 12:34 | XMS_ITS | Encounter Summary ---
Author Organization [facility] Address [address] [place] [address] Phone Care Team Providers Care Bagel Maker Name Role Phone Darcie Story MD Primary Care Provider Unavailabl e Encounter Details Date Type Department Care Team (Late st Contact Info) Description 10/21/2013 Documentation [facility] Family Medicine [address] [place] [address] Family Medicine, Physician [address] [place] [address] Social History Tobacco Use Types Packs/Day Years [...] on filedocumented in this encounter Care Teams Bagel Maker Relationship Specialty Start Date End Date Darcie Story MD PCP - General 01/04/17 documented as of this encounter
--- OUTSIDE RECORDS SUMMARY | 2025-02-26 12:34 | XMS_ITS | Encounter Summary ---
Author Organization [facility] Address [address] [place] [address] Phone Care Team Providers Care K 12 Principal Name Role Phone Darcie Story MD Primary Care Provider Unavailabl e Encounter Details Date Type Department Care Team (Late st Contact Info) Description 01/10/2017 Conversion Encounter [facility] - [address] [address] Social History Tobacco Use Types Packs/Day Years [...] on filedocumented in this encounter Care Teams K 12 Principal Relationship Specialty Start Date End Date Darcie Story MD PCP - General 01/04/17 documented as of this encounter
--- OUTSIDE RECORDS SUMMARY | 2025-02-26 12:34 | XMS_ITS | Encounter Summary ---
Author Organization [facility] Address [address] [place] [address] Phone Care Team Providers Care Service Attendant Name Role Phone Darcie Story MD Primary Care Provider Unavailabl e Encounter Details Date Type Department Care Team (Late st Contact Info) Description 03/02/2013 Documentation [facility] [place] Family Medicine [address] [place] [address] Family Medicine, Physician [address] [place] [address] Social History Tobacco Use Types Packs/Day Years [...] on filedocumented in this encounter Care Teams Service Attendant Relationship Specialty Start Date End Date Darcie Story MD PCP - General 01/04/17 documented as of this encounter
--- OUTSIDE RECORDS SUMMARY | 2025-02-26 12:34 | XMS_ITS | Clinical Summary ---
Author Organization [facility] Address [address] [place] [address] Phone Care Team Providers Care Public Health Engineer Name Role Phone Darcie Story MD Primary [...] 2 Other 2 Family history of *Sudden /[place] under 55, No family history of Asthma, [...] Additional history exists Influenza Vaccines (#1) 2024 05/31/19 15, 08/10/2013, 08/07/2012, Additional history exists COVID-19 Vaccine [...] complete this topic Procedures * Due to [facility] law, this organization might not be sharing sensitive test results. Procedure Name Priority Date/Time Associated Diagnosis Comments CHLAMYDIA AND GONORRHEA, AMPLIFIED Routine 08/11/2014 2:58 PM EDT from Last 3 Months or Most Recently Relevant to Health Maintenance Results * Due to [place] [employer] law, this organization might not be sharing sensitive test results. * Chlamydia and Gonorrhoea, Amplified (08/11/2014 2:58 PM EDT) Pathologist [facility] URINE CHLAMYDIA AMP PROBE NEGATIVE [facility] Comment: No Chlamydia Trachomatis RNA detected in this patient's sample (REFERENCE RANGE/NORMAL VALUE: NOT DETECTED) URINE GC AMP PROBE NEGATIVE [facility] Comment: No Neisseria Gonorrhoeae RNA detected in this patient's sample (REFERENCE RANGE/NORMAL VALUE: NOT DETECTED) NOTE: This test uses medical physiologist-mediated amplification method to detect rRNA from C.Trachomatis [...] without risk of sexual abuse. Consult the [facility] if needed. Contact phone number . Therapeutic failure or success cannot be determined with the Aptima Combo2 assay since nucleic acid may persist following appropriate antimicrobial therapy. The Centers for Disease Control and Prevention (CDC) recommends confirmatory retesting using culture or a different nucleic acid amplification test when positive results occur, if indicated. Testing performed or reported by [facility], a Service of [facility], [address] [place] [address] Tremaine Bowling MD, PhD, Overhead Cleaner 08/11/2014 2:58 PM EDT Narrative [facility] - 08/11/2014 2:58 PM EDT URINE CHLAMYDIA GC AMP PROBE us Bharti Alvarado MD LAB MICROBIOLOGY - GENERAL ORDER DAE Final Result [facility] [address] [place] [address], from Last 3 Months or Most Recently Relevant to Health Maintenance Care Teams Public Health Engineer Relationship Specialty Start Date End Date Darcie Story MD PCP - General 01/04/17
--- OUTSIDE RECORDS SUMMARY | 2025-02-26 12:34 | XMS_ITS | Clinical Summary ---
Author Organization [facility] Address [address] [address] Phone Care Team Providers Care Policy Writer Typist Name Role Phone Bull Yates MD Primary [...] topic Medical Devices Not on file Insurance [employer] NET[employer]WORK [employer]MO [employer] HMO [employer] NETWORK HMO [employer] LIMITED NETWORK HMO Care Teams Policy Writer Typist Relationship Specialty Start Date End Date Bull Yates MD [address] [place] [id number] PCP - General Internal Medicine 06/27/20 Additional Source Comments The information contained in this document represents components of the legal health record. It is not the complete legal health record.[facility]
[2025-02-26 13:20] LABS: Appearance Urine Clear; Glucose Urine UA Negative (Negative); PH 6.5 (5.0-9.0); Specific Gravity - Urine 1.020 (1.005-1.025); UMIC TRIGGER UACC YES
[2025-02-26 13:24] LABS: MANUAL DIFF FLAG NO
[2025-02-26 13:59] LABS: Hematocrit 38.8 % (37.0-47.0); Hemoglobin 13.6 g/dl (12.0-16.0); Imm Gran Abs Auto 0.01 X10*3/uL (0.00-0.03); Imm Gran Pct Auto 0.2 % (0.0-0.4); Lymphocytes Absolute Auto 1.5 X10*3/uL (1.2-4.9); Mean Corpuscular HGB Conc 35.1 g/dl (31.0-35.0); Mean Corpuscular Hemoglobin 30.2 pg (27.0-33.0); Mean Corpuscular Volume 86.2 fL (80.0-98.0); NRBC Abs Auto 0.000 X10*3/uL (0.0-0.012); NRBC Pct Auto 0.0 /100WBC (0.0-0.2); Platelet Count 266 X10*3/uL (160-400); Red Blood Count 4.50 X10*6/uL (4.20-5.50); White Blood Count 5.2 X10*3/uL (4.8-10.8)
[2025-02-26 14:40] LABS: Alanine Aminotransferase 17 U/L (0-31); Aspartate Amino Transferase 18 U/L (5-31); Estimated Glomerular Filt Rate > 60
[2025-02-26 14:47] LABS: Total Protein Urine Random < 7 mg/dL (<12)
== END 2025-02-26 11:26 | disposition home or self-care (01) ==
LOC: HO.HMGCLDS 11:25
PROVIDERS: PCP Nurse Practitioner Family; Visit Provider Internal Medicine Rheumatology
DX: Z01.84 Encounter for antibody response examination (principal); M32.9 Systemic lupus erythematosus, unspecified
CPT/HCPCS: 36415; 81001; 82565; 82570; 84156; 84450; 84460; 85025; 85652; 86140; 86160; 86225

== ENCOUNTER 2025-04-27 08:20 | Outpatient (REF) | payer OTHER, SELFPAY ==
--- OUTSIDE RECORDS SUMMARY | 2025-04-24 23:59 | XMS_ITS | Continuity of Care Document ---
Author Organization [facility] Geoff Andrew lt Address [address] [place] [address]- Care Team Providers Care Gas Prover Name Role Phone Crystal SWEATBAND SEPARATOR, Razia Sneed Primary Care Physician [place] [facility] [place]): [place]25[place]25 - 04/24/25 [facility] Adult [address] [place] [address]- Attending Physician: AdmMirna swanson Admitting Physician: AdmtrMirna Referring Physician: Admtr [id number] Encounter Type: Triage Allergies, Adverse Reactions, Alerts Substance Criticality Severity Reaction Reaction Severity Status Rituxan High blood pressure Active Immunizations Given and Recorded Vaccine Date Status Refusal Reason influenza virus vaccine, inactivated 1 04/10/24 Gi tania influenza virus vaccine, inactivated 2 04/01/23 Gi tania influenza virus vaccine, inactivated 3 04/23/22 Gi tania influenza virus vaccine, inactivated 4 04/04/21 Gi tania influenza virus vaccine, inactivated 02/23/20 Josemanuel rded influenza virus vaccine, inactivated 03/06/19 Give n influenza virus vaccine, inactivated 5 04/09/18 Gi tania influenza virus vaccine, inactivated 02/24/18 Josemanuel rded influenza virus vaccine, inactivated 6 05/29/17 Gi tania [id number] 12y+ bivalent booster vax 7 04/23/22 Given SARS-CoV-2 (COVID-19) mRNA BNT-162b2 vac 05/22/21 Recorded SARS-CoV-2 (COVID-19) mRNA BNT-162b2 vac 04/26/21 Recorded SARS-CoV-2 (COVID-19) mRNA BNT-162b2 vac 03/10/21 Recorded SARS-CoV-2 (COVID-19) mRNA BNT-162b2 vac 02/17/21 Recorded SARS-CoV-2 (COVID-19) mRNA BNT-162b2 vac 10/15/20 Recorded SARS-CoV-2 (COVID-19) mRNA BNT-162b2 vac 09/24/20 Recorded Influenza Virus Vaccine (oldterm) 8 03/02/20 Recor ded tetanus/diphtheria/pertussis, acel(Tdap) 03/06/19 Given tetanus/diphtheria/pertussis, acel(Tdap) 01/05/09 Recorded Hepatitis A Adult Vaccine 01/03/15 Recorded Hepatitis A Adult Vaccine 05/31/14 Recorded Meningococcal Conjugate Vaccine 05/31/14 Recorded Meningococcal Conjugate Vaccine 01/05/09 Recorded Human Papillomavirus Vaccine 05/03/11 Recorded Human Papillomavirus Vaccine 04/19/10 Recorded Human Papillomavirus Vaccine 02/08/10 Recorded Varicella Virus Vaccine 01/05/09 Recorded Varicella Virus Vaccine 07/16/97 Recorded Poliovirus Vaccine, Inactivated 08/05/00 Recorded Poliovirus Vaccine, Inactivated 01/11/97 Recorded Poliovirus Vaccine, Inactivated 96 Recorded Poliovirus Vaccine, Inactivated 96 Recorded Measles/Mumps/Rubella Virus Vaccine 08/05/00 Recor ded Measles/Mumps/Rubella Virus Vaccine 07/16/97 Recor ded hepatitis B adult vaccine 96 Recorded hepatitis B adult vaccine 96 Recorded hepatitis B adult vaccine 96 Recorded 1Result Comment: [id number] 2Result Comment: [id number] Checklist completed 3Result Comment: [facility] [id number] 4Result Comment: [facility]: [id number] 5Result Comment: [04/09/2018] [facility]-[id number] 6Result Comment: [05/29/2017] [facility] [id number] 7Result Comment: [id number] 8Result Comment: at [facility] Medications Benlysta Once, 0 Refills, Maintenance, 09/11/21 8:16:00 PM EDT, Partial fill upon patient request if the prescription is for a schedule II opioid drug. Start Date: 09/11/21 Status: Ordered Medication Dispense Status: Completed Total Allowed Fills: 1 Fills Dispensed: 0 Biotin By Mouth, Daily, 0 Refills, Maintenance, 03/30/20 10:05:00 AM EST Start Date: 03/30/20 Status: Ordered Medication Dispense Status: Completed Total Allowed Fills: 1 Fills Dispensed: 0 desonide 0.05% topical cream 1 application, Topically, 2 times a day, apply athin film to affected area for no more than 7 days,# 15 Gm, 0 Refills, Maintenance, 10/28/24 12:19:00 PM EDT, Cream, [facility], Partial fill upon patient request if the prescription is for a schedule II opioid drug., 1 application Topically 2times a day,Instr:apply athin film to affected area for no more than 7 days, 154.5, cm, 10/28/24 11:47:00 EDT, Height, 74.7, kg, 09/03/24 9:20:00 EDT, Dry Weight Start Date: 10/28/24 Status: Ordered Medication Dispense Status: Completed Quantity: 15.0 Unit: g Total Allowed Fills: 1 Fills Dispensed: 0 escitalopram 20 mg oral tablet 1 tablet = 20 mg, By Mouth, Daily, for 30 days, Increased strength, # 30 tablet, 1 Refills, Acute 05/24/25 10:14:00 AM EST, 03/25/25 10:14:00 AM EDT, Tablet, [facility], 154.5, cm, 03/25/25 9:36:00 EDT, Height, 74.7, kg, 09/03/24 9:20:00 EDT, Dry Weight Start Date: 03/25/25 Stop Date: 05/24/25 Status: Ordered Medication Dispense Status: Completed Quantity: 30.0 Unit: tablet Total Allowed Fills: 2 Fills Dispensed: 0 Mirena 52 mg intrauteral device 1 each = 52 mg, Once, changed 07/2019, 0 Refills, Maintenance, 03/25/17 7:11:31 AM EDT Start Date: 03/25/17 Status: Ordered Medication Dispense Status: Completed Total Allowed Fills: 1 Fills Dispensed: 0 Plaquenil = 400 mg, By Mouth, Daily, 0 Refills, Maintenance, 06/02/18 12:05:11 PM EST Start Date: 06/02/18 Status: Ordered Medication Dispense Status: Completed Total Allowed Fills: 1 Fills Dispensed: 0 Problem List Condition Confirmation Course Effective Dates Status H ealth Status Informant Allergic rhinitis Confirmed Active Chronic constipation Confirmed Active Long-term use of Plaquenil Confirmed Active Family history of breast cancer 1 Confirmed Active Generalized anxiety disorder with panic attacks Confirmed Active History of autoimmune hemolytic anemia Confirmed Active Prothrombin gene mutation Confirmed Active Obese class I Confirmed Active Raynaud disease Confirmed Active Systemic lupus erythematosus Confirmed Active 1in both GMs and maternal aunt Social History Social History Type Response Sexual Sexually involved in last 6 months: Yes. Gender of partner(s): Male. Other contraceptive use: Mirena IUD. Smoking Status Never (less than 100 in lifetime) entered on: 04/01/23 Sex Sex Representation Female (finding) Laboratory * Event Display: Laboratory Result Scanned Authored Date: * Event Display: Laboratory Result Scanned Authored Date: * Event Display: Laboratory Result Scanned Authored Date: * Event Display: Laboratory Result Scanned Authored Date: * Event Display: Non BH Lab Results Authored Date: * Event Display: Laboratory Result Scanned Authored Date: * Event Display: Non BH Lab Results Authored Date: * Event Display: Laboratory Result Scanned Authored Date: Patient Care team information Care Team Personnel Name: Deepti Pan Position: [facility] Onco RN Member Role: Primary Care Nurse Name: Deepti Gurrola MD Position: [facility] AIR PLANT ENGINEER Member Role: Lifetime Consulting Physician Address: [address] [place] [address], [address] [place] [address]- Telecom: Name: Keisha Mcneil RN Position: [facility] RN Member Role: Primary Care Nurse Name: Razia Rojas NP Position: [facility] PCO Associate Professional Member Role: PCP Address: [address] [place] [address]- Telecom: Name: Fidelia Burns RN Position: [facility] Onco RN Member Role: Primary Care Nurse Care Team Related Persons Name: BERNARDO VALDIVIA Name: NHI VALDIVIA Insurance Providers Guarantor name: ROSENDA VALDIVIA [facility] Plan Information #: 1 Payer: JANNA [facility] Payer Identifier: NA Member Number: [id number] Group Number: [id number] Subscriber Identifier: NA Relationship to Subscriber: self Coverage Type: NA Coverage Verification Date: NA Telecom: NA Address: NA
[2025-04-27 13:30] LABS: MANUAL DIFF FLAG NO
[2025-04-27 13:39] LABS: Hematocrit 37.4 % (37.0-47.0); Hemoglobin 13.0 g/dl (12.0-16.0); Imm Gran Abs Auto 0.01 X10*3/uL (0.00-0.03); Imm Gran Pct Auto 0.3 % (0.0-0.4); Lymphocytes Absolute Auto 1.3 X10*3/uL (1.2-4.9); Mean Corpuscular HGB Conc 34.8 g/dl (31.0-35.0); Mean Corpuscular Hemoglobin 30.4 pg (27.0-33.0); Mean Corpuscular Volume 87.6 fL (80.0-98.0); NRBC Abs Auto 0.000 X10*3/uL (0.0-0.012); NRBC Pct Auto 0.0 /100WBC (0.0-0.2); Platelet Count 223 X10*3/uL (160-400); Red Blood Count 4.27 X10*6/uL (4.20-5.50); White Blood Count 3.6 X10*3/uL (4.8-10.8)
[2025-04-27 13:47] LABS: Appearance Urine Clear; Glucose Urine UA Negative (Negative); PH 7.0 (5.0-9.0); Specific Gravity - Urine 1.015 (1.005-1.025)
[2025-04-27 13:59] LABS: Alanine Aminotransferase 21 U/L (0-31); Aspartate Amino Transferase 18 U/L (5-31); Estimated Glomerular Filt Rate > 60
[2025-04-27 14:24] LABS: Total Protein Urine Random < 7 mg/dL (<12)
== END 2025-04-27 08:21 | disposition home or self-care (01) ==
LOC: HO.HKASLDS 08:20
PROVIDERS: PCP Nurse Practitioner Family; Visit Provider Internal Medicine Rheumatology
DX: M32.9 Systemic lupus erythematosus, unspecified (principal); Z79.899 Other long term (current) drug therapy; Z01.84 Encounter for antibody response examination
CPT/HCPCS: 36415; 81001; 82565; 82570; 84156; 84450; 84460; 85025; 85652; 86140; 86160; 86225

== ENCOUNTER 2025-04-27 08:20 | Outpatient (AMB) | payer OTHER, SELFPAY ==
--- OUTSIDE RECORDS SUMMARY | 2025-04-27 08:23 | XMS_ITS | Encounter Summary ---
Author Organization [facility] Address [address] [place] [address] Phone Care Team Providers Care Manager Cosmetics Name Role Phone Darcie Story MD Primary Care Provider Unavailabl e Encounter Details Date Type Department Care Team (Late st Contact Info) Description 01/10/2017 Conversion Encounter [facility] - [address] [address] Social History Tobacco Use Types Packs/Day Years [...] on filedocumented in this encounter Care Teams Manager Cosmetics Relationship Specialty Start Date End Date Darcie Story MD PCP - General 01/04/17 documented as of this encounter
--- OUTSIDE RECORDS SUMMARY | 2025-04-27 08:23 | XMS_ITS | Encounter Summary ---
Author Organization [facility] Address [address] [place] [address] Phone Care Team Providers Care Maintenance And Custodian Supervisor Name Role Phone Darcie Story MD Primary Care Provider Unavailabl e Encounter Details Date Type Department Care Team (Late st Contact Info) Description 03/02/2013 Documentation [facility] [place] Family Medicine [address] [place] [address] Family Medicine, Physician [address] [place] [address] Social History Tobacco Use Types Packs/Day Years [...] on filedocumented in this encounter Care Teams Maintenance And Custodian Supervisor Relationship Specialty Start Date End Date Darcie Story MD PCP - General 01/04/17 documented as of this encounter
--- OUTSIDE RECORDS SUMMARY | 2025-04-27 08:23 | XMS_ITS | Encounter Summary ---
Author Organization [facility] Address [address] [place] [address] Phone Care Team Providers Care Manager Critical Care Unit Name Role Phone Darcie Story MD Primary Care Provider Unavailabl e Encounter Details Date Type Department Care Team (Late st Contact Info) Description 03/02/2013 Documentation [facility] [place] [address] [place] [address] Family Medicine, Physician [address] [place] [address] Social History Tobacco Use Types Packs/Day Years [...] filedocumented in this encounter Care Teams Manager Critical Care Unit Relationship Specialty Start Date End Date Darcie Story MD PCP - General 01/04/17 documented as of this encounter
--- OUTSIDE RECORDS SUMMARY | 2025-04-27 08:23 | XMS_ITS | Clinical Summary ---
Author Organization [facility] Address [address] [address] Phone Care Team Providers Care Escalator Installer Name Role Phone Bull Yates MD Primary [...] topic Medical Devices Not on file Insurance [employer] LIMITED NETWORK HMO Care Teams Escalator Installer Relationship Specialty Start Date End Date Bull Yates MD [address] [place] [address] PCP - General Internal Medicine 06/27/20 Additional Source Comments The information contained in this document represents components of the legal health record. It is not the complete legal health record.[facility]
--- OUTSIDE RECORDS SUMMARY | 2025-04-27 08:23 | XMS_ITS | Encounter Summary ---
Author Organization [facility] Address [address] [place] [address] Phone Care Team Providers Care Office Technologist Name Role Phone Darcie Story MD Primary Care Provider Unavailabl e Encounter Details Date Type Department Care Team (Late st Contact Info) Description 08/14/2013 Documentation [facility] [place] Family Medicine [address] [place] [address] Family Medicine, Physician [address] [place] [address] Social History Tobacco Use Types Packs/Day Years [...] on filedocumented in this encounter Care Teams Office Technologist Relationship Specialty Start Date End Date Darcie Story MD PCP - General 01/04/17 documented as of this encounter
--- OUTSIDE RECORDS SUMMARY | 2025-04-27 08:23 | XMS_ITS | Clinical Summary ---
Author Organization [facility] Address [address] [place] [address] Phone Care Team Providers Care Splash Line Operator Name Role Phone Darcie Story MD [...] 2 Other 2 Family history of *Sudden /[place] under 55, No family history of Asthma, [...] complete this topic Procedures * Due to [facility] law, this organization might not be sharing sensitive test results. Procedure Name Priority Date/Time Associated Diagnosis Comments CHLAMYDIA AND GONORRHEA, AMPLIFIED Routine 08/11/2014 2:58 PM EDT from Last 3 Months or Most Recently Relevant to Health Maintenance Results * Due to [place] [employer] law, this organization might not be sharing sensitive test results. * Chlamydia and Gonorrhoea, Amplified (08/11/2014 2:58 PM EDT) Pathologist [facility] URINE CHLAMYDIA AMP PROBE NEGATIVE [facility] Comment: No Chlamydia Trachomatis RNA detected in this patient's sample (REFERENCE RANGE/NORMAL VALUE: NOT DETECTED) URINE GC AMP PROBE NEGATIVE [facility] Comment: No Neisseria Gonorrhoeae RNA detected in this patient's sample (REFERENCE RANGE/NORMAL VALUE: NOT DETECTED) NOTE: This test uses transcriptionist-mediated amplification method to detect rRNA from C.Trachomatis [...] without risk of sexual abuse. Consult the [facility] if needed. Contact phone number . Therapeutic failure or success cannot be determined with the Aptima Combo2 assay since nucleic acid may persist following appropriate antimicrobial therapy. The Centers for Disease Control and Prevention (CDC) recommends confirmatory retesting using culture or a different nucleic acid amplification test when positive results occur, if indicated. Testing performed or reported by [facility], a Service of [facility], [address] [place] [address] Tremaine Bowling MD, PhD, Development Advisor 08/11/2014 2:58 PM EDT Narrative [facility] - 08/11/2014 2:58 PM EDT URINE CHLAMYDIA GC AMP PROBE us Bharti Alvarado MD LAB MICROBIOLOGY - GENERAL ORDER DAE Final Result [facility] [address] [place] [address], from Last 3 Months or Most Recently Relevant to Health Maintenance Care Teams Splash Line Operator Relationship Specialty Start Date End Date Darcie Story MD PCP - General 01/04/17
--- OUTSIDE RECORDS SUMMARY | 2025-04-27 08:23 | XMS_ITS | Encounter Summary ---
Author Organization [facility] Address [address] [place] [address] Phone Care Team Providers Care Returned Case Inspector Name Role Phone Darcie Story MD Primary Care Provider Unavailabl e Encounter Details Date Type Department Care Team (Late st Contact Info) Description 10/21/2013 Documentation [facility] [place] Family Medicine [address] [place] [address] Family Medicine, Physician [address] [place] [address] Social History Tobacco Use Types Packs/Day Years [...] on filedocumented in this encounter Care Teams Returned Case Inspector Relationship Specialty Start Date End Date Darcie Story MD PCP - General 01/04/17 documented as of this encounter
--- OUTSIDE RECORDS SUMMARY | 2025-04-27 08:23 | XMS_ITS | Encounter Summary ---
Author Organization [facility] Address [address] [place] [id number] Phone Care Team Providers Care Dairy Management Specialist Name Role Phone Darcie Story MD Primary Care Provider Unavailabl e Encounter Details Date Type Department Care Team (Late st Contact Info) Description 12/22/2014 Documentation [facility] [place] [facility] [address] [place] [address] Family Medicine, Physician [address] [place] [address] Social History Tobacco Use Types Packs/Day Years [...] filedocumented in this encounter Care Teams Dairy Management Specialist Relationship Specialty Start Date End Date Darcie Story MD PCP - General 01/04/17 documented as of this encounter
--- NOTE | 2025-04-27 08:25 | A.OFFVIS_ITS ---
Vital Signs 04/27/25 08:28 Height 5 ft 1 in Weight 172 lb BMI 32.5 BP 140/80 H Blood Pressure Location Rt brachial Position Sitting Pulse 70 Pulse Source Pulse Oximeter Pulse Oximetry (%) 96 Oxygen Delivery Method Room Air Intake Visit Reasons: 3months Intake Note: Patient presents for follow up osteoarthritis. Accompanied by: Self / Same As Patient Allergies rituximab (From Rituxan) Allergy (Mild, Verified 04/27/25 08:25) hives, nausea, tachycardia HPI HPI 3months: Details: No recent infections. Denies fevers, dyspnea, pleurisy, oral ulcers, rash, joint pain, joint swelling, Raynaud's phenomenon, urinary symptoms. After Benlysta infusion she has hot flashes for a day that are tolerable. She also feels a little bit more tired than usual after the infusion. No other associated symptoms. [facility] Medical History Anxiety Raynauds disease Antiphospholipid antibody positive Lupus (systemic lupus erythematosus) Surgical History S/P tonsillectomy Family History Mother Breast cancer Maternal Grandmother No problems noted. Maternal Aunt Breast cancer Father Hypertension Social History Alcohol intake: current Alcohol intake frequency: holidays/special occasions only Alcohol type: hard liquor Comment: once a week Patient Tobacco Use Status: Never used Tobacco Physical Exam Vital Signs: Last Vital Signs Pulse 70 04/27/25 08:28 BP 140/80 H 04/27/25 08:28 Pulse Ox 96 04/27/25 08:28 Oxygen Delivery Method Room Air 04/27/25 08:28 BMI result Body Mass Index 32.5 Const Other: General: Comfortable CVS: RRR Respiratory: clear to auscultation bilaterally. Good respiratory effort Skin: No lesions seen, digital ulcers or discoloration MSK: No synovitis. No tender joints. Normal range of motion of upper extremities and lower extremities. Assessment & Plan Assessment & Plan (1) Lupus (systemic lupus erythematosus): Comment: In clinical remission on hydroxychloroquine and Benlysta infusions. Recent labs 02/2025 reviewed with patient are stable (indeterminate double-stranded DNA and low C4). Rheumatology history: She was diagnosed with systemic lupus erythematosus manifesting with autoimmune hemolytic anemia, malar rash, hair loss, migraines, Raynaud's syndrome, inflammatory arthritis, hypocomplementemia, low C3, undetectable level of C4 initially, positive double-stranded DNA. She was treated with prednisone 60 mg daily March 2018 tapered off 07/[address] Garsia [facility] [place]. HCQ Baseline exam 07/2018. Rituximab 375mg/m2 4 doses 11/2019-06/2020 d/c infusion reaction after 3rd and 4th weekly dose. Azathioprine started due to serological activity of lupus but discontinued due to worsening leukopenia and new transaminitis. Code(s): M32.9 - Systemic lupus erythematosus, unspecified Category: Medical Qualifiers: Systemic lupus erythematosus organ involvement: unspecified Systemic lupus erythematosus type: unspecified Qualified Code(s): M32.9 - Systemic lupus erythematosus, unspecified Plan: Labs for disease and drug monitoring on high-risk medication ordered. Continue HCQ 300mg daily. OCT and VF 02/2025 normal. Continue Benlysta IV infusion every 4 weeks. She will monitor her temperature before and after Benlysta infusion Return to clinic in 3 months (2) Other mcfp (current) drug therapy: Code(s): Z79.899 - Other mcfp (current) drug therapy Category: Medical Plan See above Orders: Orders Erythrocyte Sedimentation Rate Today M32.9 - Systemic lupus erythematosus, unspecified Protein Creatinine Ratio, Ur Today M32.9 - Systemic lupus erythematosus, unspecified Alanine Aminotransferase Today M32.9 - Systemic lupus erythematosus, unspecified Complement C3 Today M32.9 - Systemic lupus erythematosus, unspecified Aspartate Amino Transferase Today M32.9 - Systemic lupus erythematosus, unspecified Complement C4 Today M32.9 - Systemic lupus erythematosus, unspecified Creatinine Today M32.9 - Systemic lupus erythematosus, unspecified UA ClnCatch+Micro w/rflx Cult Today M32.9 - Systemic lupus erythematosus, unspecified C Reactive Protein Today M32.9 - Systemic lupus erythematosus, unspecified Complete Blood Count Auto Diff Today M32.9 - Systemic lupus erythematosus, unspecified Anti DNA DS Antibody Today M32.9 - Systemic lupus erythematosus, unspecified Coding Level of Care Code Est Pt Level 4 (92824) Complex visit Add On G2211 Diagnoses Systemic lupus erythematosus, unspecified SLE type, unspecified organ involvement status M32.9 Systemic lupus erythematosus organ involvement: unspecified Systemic lupus erythematosus type: unspecified Other termite control service representative (current) drug therapy Z79.899
[2025-04-27 08:28] VITALS: BP 140/80; PULSE 70; O2SAT 96; BMI 32.5
== END 2025-04-27 08:53 | disposition home or self-care (01) ==
LOC: HO.RHES 08:20
PROVIDERS: PCP Nurse Practitioner Family; Visit Provider Internal Medicine Rheumatology
DX: M32.9 Systemic lupus erythematosus, unspecified (principal); Z79.899 Other long term (current) drug therapy
CPT/HCPCS: 99214; G2211